=== PATIENT | female | born 2005 | race Hispanic/Latino ===

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

== ENCOUNTER 2024-04-19 13:22 | Emergency (ER) | payer SELFPAY ==
[~2024-04-19] VITALS: Ht 162.6 cm; Wt 68.0 kg
[~2024-04-19 13:22] MED LIST: DOXYCYCLINE HY100 MG PO; IBUPROFEN600 MG PO
[2024-04-19 15:14] LABS: BASOPHILS # (AUTO) 0.1 (0.0-0.1); BASOPHILS % 0.4 % (0.0-1.0); EOSINOPHILS % 0.1 % (0.0-6.0); HEMATOCRIT 45.4 % (34.2-44.1); LYMPHOCYTES % 31.7 % (18.0-39.1); MEAN CORPUSCULAR HEMOGLOBIN 30.2 pg (28-32); MEAN CORPUSCULAR VOLUME 91.5 fL (81-99); MONOCYTES # (AUTO) 0.7 (0.2-0.8); MONOCYTES % 4.7 % (4.4-11.3); NEUTROPHILS # (AUTO) 9.8 (2.1-6.9); NEUTROPHILS % 62.7 % (38.7-80.0); PLATELET COUNT 199 x10e3/uL (140-360); RED BLOOD COUNT 4.96 x10e6/uL (3.6-5.1); RED CELL DISTRIBUTION WIDTH 12.2 % (11.7-14.4); WHITE BLOOD COUNT 15.66 x10e3/uL (4.8-10.8)
[2024-04-19 15:32] LABS: ALBUMIN 4.2 g/dL (3.5-5.0); ALBUMIN/GLOBULIN RATIO 1.1 (0.8-2.0); ANION GAP 16.2 mmol/L (8-16); BILIRUBIN,TOTAL 0.7 mg/dL (0.2-1.2); CALCIUM 9.2 mg/dL (8.4-10.2); CREATININE, SERUM 0.86 mg/dL (0.57-1.11); POTASSIUM 4.2 mmol/L (3.5-5.1); TOTAL PROTEIN 8.2 g/dL (6.5-8.1)
[2024-04-19] MEDS ORDERED: IOPAMIDOL 370 MG/ML 100 ML INFUS..BTL INJ ONE (15:35)
[2024-04-19] MEDS ORDERED: ONDANSETRON HCL INJ 2MG/ML 2ML 2 MG/ML VIAL IV STA (15:57)
[2024-04-19] MEDS ORDERED: DICYCLOMINE HCL 20 MG/2 ML VIAL IM ONE (16:00)
[2024-04-19] MEDS ORDERED: SODIUM CHLORIDE 0.9% 1000ML 1,000 ML IV SCH (16:15)
[2024-04-19] MEDS: ONDANSETRON HCL INJ 2MG/ML 2ML 2 MG/ML VIAL IV STA (16:37)
[2024-04-19] MEDS: SODIUM CHLORIDE 0.9% 1000ML 1,000 ML IV STA (16:37)
[2024-04-19] MEDS: FAMOTIDINE 20 MG/2 ML VIAL IV ONE (16:37)
[2024-04-19 16:38] LABS: BILIRUBIN,URINE SMALL (NEGATIVE); CLARITY,URINE SL CLOUDY (CLEAR); COLOR,URINE YELLOW (YELLOW); GLUCOSE, URINE NEGATIVE (NEGATIVE); KETONES,URINE 1+ (NEGATIVE); LEUKOCYTE ESTERASE ,URINE NEGATIVE (NEGATIVE); NITRITE,URINE NEGATIVE (NEGATIVE); PH,URINE 6 (5 - 7); PROTEIN,URINE DIPSTICK TRACE (NEGATIVE); URINE UROBILINOGEN 0.2 mg/dL (0.2 - 1)
[2024-04-19] MEDS: SODIUM CHLORIDE 0.9% 1000ML 1,000 ML IV SCH (16:38)
[2024-04-19] MEDS: ACETAMINOPHEN 325 MG TAB PO ONE (16:49)
[2024-04-19 16:56] LABS: AMORPHOUS SEDIMENT,URINE MODERATE (FEW); BACTERIA,URINE MODERATE /HPF; EPITHELIAL CELLS,URINE MODERATE /LPF; RBC,URINE 0-5 /HPF (0-5); WBC,URINE (MAN) 0-5 /HPF (0-5)
[2024-04-19 16:57] VITALS: TEMP 100
[2024-04-19 18:48] VITALS: PULSE 100; RESP 18
[2024-04-19] MEDS ORDERED: PANTOPRAZOLE SO40 MG PO (19:27)
[2024-04-19] MEDS ORDERED: ONDANSETRON ODT4 MG PO (19:27)
[2024-04-19] MEDS ORDERED: DICYCLOMINE HCL20 MG PO (19:27)
[2024-04-19 20:13] VITALS: BP 127/85; O2SAT 99
== END 2024-04-19 20:05 | disposition home or self-care (01) ==
LOC: ER 15:56
DX: R50.9 Fever, unspecified (principal); A08.4 Viral intestinal infection, unspecified; R11.2 Nausea with vomiting, unspecified; Z11.52 Encounter for screening for COVID-19
CPT/HCPCS: 36415; 71045; 74177; 80053; 81001; 83605; 84702; 85025; 87040; 87086; 87400; 87420; 99284; J0500; J2405; J2470; J7030; Q9967; U0002

== ENCOUNTER 2024-08-17 20:57 | Emergency (ER) | payer OTHER ==
[~2024-08-17] VITALS: Ht 162.6 cm; Wt 72.6 kg
[~2024-08-17 20:57] MED LIST changes: +DICYCLOMINE HCL20 MG PO; +ONDANSETRON ODT4 MG PO; +PANTOPRAZOLE SO40 MG PO
[2024-08-17 21:57] LABS: PREGNANCY TEST, URINE POSITIVE (NEGATIVE)
[2024-08-17 22:03] LABS: CLARITY,URINE SL CLOUDY (CLEAR); COLOR,URINE RED (YELLOW)
[2024-08-17 22:04] LABS: BILIRUBIN,URINE 2+ (NEGATIVE); GLUCOSE, URINE NEGATIVE (NEGATIVE)
[2024-08-17 22:05] LABS: KETONES,URINE NEGATIVE (NEGATIVE); PH,URINE 7.5 (5 - 7); PROTEIN,URINE DIPSTICK 3+ (NEGATIVE)
[2024-08-17 22:06] LABS: LEUKOCYTE ESTERASE ,URINE 2+ (NEGATIVE); NITRITE,URINE NEGATIVE (NEGATIVE); URINE UROBILINOGEN 0.2 mg/dL (0.2 - 1)
[2024-08-17 22:28] LABS: BACTERIA,URINE MODERATE /HPF; RBC,URINE >50 /HPF (0-5); WBC,URINE (MAN) 0-5 /HPF (0-5)
[2024-08-17 22:29] LABS: EPITHELIAL CELLS,URINE MANY /LPF
[2024-08-17 23:18] VITALS: PULSE 78; RESP 16; TEMP 98.3
[2024-08-17] MEDS ORDERED: CEPHALEXIN500 MG PO (23:24)
[2024-08-17 23:28] VITALS: BP 119/82; PULSE 78; RESP 16; TEMP 98.3; O2SAT 99
== END 2024-08-17 23:30 | disposition home or self-care (01) ==
LOC: ER 21:11
DX: O20.0 Threatened abortion (principal)
CPT/HCPCS: 76801; 76817; 81001; 81025; 99283